=== PATIENT | female | born 1960 | race Caucasian/White ===

== ENCOUNTER 2023-04-03 08:35 | Outpatient (CLI) | payer MEDICAID ==
[2023-04-03 09:53] LABS: BLOOD UREA NITROGEN 18 MG/DL (7-18)
[2023-04-03 09:59] LABS: ALANINE AMINOTRANSFERASE 23 U/L (12-78); ALBUMIN 3.7 G/DL (3.4-5.0); ALKALINE PHOSPHATASE 106 IU/L (46-116); ANION GAP 7 (8-16); ASPARTATE AMINO TRANSFERASE 22 U/L (10-37); BILIRUBIN,TOTAL 0.4 MG/DL (0.1-1.0); BUN/CREATININE RATIO 22.8 (10.0-20.0); CALCIUM 8.9 MG/DL (8.5-10.1); CHLORIDE 104 MMOL/L (99-107); CREATININE 0.79 MG/DL (0.40-0.90); GLUCOSE 117 MG/DL (70-104); POTASSIUM 4.5 MMOL/L (3.5-5.1); SODIUM 137 MMOL/L (135-145); TOTAL CARBON DIOXIDE 25.7 MMOL/L (24-32); TOTAL PROTEIN 7.4 G/DL (6.4-8.2); eGFR 74 ML/MIN
[2023-04-03 10:09] LABS: HIV ANTIBODY 1&2 RAPID NON-REACTIVE (Neg)
[2023-04-04 15:30] LABS: HBSAG SCREEN Negative (Negative); HEP A AB, IGM Negative (Negative)
[2023-04-07 18:28] LABS: HEPATITIS C VIRUS ANTIBODY Reactive (Non Reactive)
== END 2023-04-03 23:59 | disposition home or self-care (01) ==
LOC: LAB 08:35
PROVIDERS: ATTEND Family Medicine
DX: B18.2 Chronic viral hepatitis C (principal)
CPT/HCPCS: 36415; 80053; 80074; 86592; 86703; 87491